=== PATIENT | female | born 1945 | race Caucasian/White ===

== ENCOUNTER 2022-12-26 14:33 | Emergency (ER) | payer OTHER, MEDICARE ==
--- NOTE | 2022-12-26 14:44 | ERPHSYRPT ---
- History of Present Illness Time Seen by Provider: 12/26/22 14:38 Source: patient, EMS, shelter records Exam Limitations: no limitations Physician History: This is a 77-year-old white female patient who presents to the emergency department via ambulance service from a shelter secondary to increased weakness left side and fall. She also complained of a headache. 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 She was undergo ing physical therapy today around 7:30 in the morning and it was noticed that she was dragging her left lower extremity more. Apparently she has fallen recently. She also complained of eye pain. Her symptoms were initially present at 730 this morning and appeared to be worsening per physical therapy/shelter and therefore she was sent to the emergency department for evaluation. Patient denies chest pain. She currently denies headache and she denies eye pain. She has no abdominal pain. She has had no nausea vomiting or diarrhea symptoms. Occurred: this morning Reason for Fall: unknown Injuries/Pain Location: face (Left lateral supraorbital region) Loss of Consciousness: no loss of consciousness Severity of Pain-Max: mild (To moderate) Severity of Pain-Current: mild Associated Symptoms (Fall): denies symptoms, trouble walking (Left-sided weakness ever since her stroke in 2021) Allergies/Adverse Reactions: No Known Drug Allergies Allergy (Unverified 12/26/22 14:38) Travel Risk - International Travel Have you traveled outside of the country in past 3 weeks: No - Coronavirus Screening Are you exhibiting any of the following symptoms?: No Close contact with a COVID-19 positive Pt in past 14-21 Days: No - Review of Systems Constitutional: No Symptoms Eyes: No Symptoms Ears, Nose, & Throat: No Symptoms Respiratory: No Symptoms Cardiac: Orthopnea Abdominal/Gastrointestinal: No Symptoms Genitourinary Symptoms: No Symptoms Musculoskeletal: No Symptoms Skin: No Symptoms Neurological: No Symptoms Psychological: No Symptoms Endocrine: No Symptoms Hematologic/Lymphatic: No Symptoms Immunological/Allergic: No Symptoms All Other Systems: Reviewed and Negative - Past Medical History Pertinent Past Medical History: Yes - Past Surgical History Past Surgical History: Yes - Nursing Vital Signs Nursing Vital Signs: Initial Vital Signs Temperature 98.3 F 12/26/22 14:39 Pulse Rate 76 12/26/22 14:39 Respiratory Rate 18 12/26/22 14:39 Blood Pressure 119/74 12/26/22 14:39 O2 Sat by Pulse Oximetry 98 12/26/22 14:39 Pain Scale Pain Intensity 0 - Fil[place] Coma Score Best Eye Response ([place]): (4) open spontaneously Best Verbal Response ([place]): (5) oriented Best Motor Response ([place]): (6) obeys commands Filion Total: 15 - Physical Exam General Appearance: no apparent distress, alert, anxiety Head Injury: no evidence of injury (Left supraorbital/temporal region mild ecchymosis) Eye Exam: PERRL/EOMI, eyes nml inspection ENT Exam: airway nml, nml ext.inspection, No evidence of ENT injury Neck Exam: supple, trachea midline, full range of motion, normal alignment, normal inspection Respiratory/Chest Exam: normal breath sounds, No chest tenderness, No respiratory distress, No ecchymosis, No crepitus Cardiovascular Exam: normal heart sounds, regular rate/rhythm Gastrointestinal Exam: soft, normal bowel sounds, No tenderness Rectal Exam: not done Back Exam: normal inspection, normal range of motion, CVA tenderness Neurologic Exam: alert, oriented x 3, cooperative, air crew officer II-XII nml as tested, normal mood/affect, sensation nml Skin Exam: normal color, warm, dry SpO2 Interpretation: normal O2 Delivery: Room Air - Course Nursing assessment & vital signs reviewed: Yes Ordered Tests: Active Orders 24 hr Category Date Time Status Supervisor Chemical STAT Care 12/26/22 14:59 Active EKG-ER Only STAT Care 12/26/22 14:58 Active IV Insertion STAT Care 12/26/22 14:58 Active NPO (ED) STAT Care 12/26/22 14:58 Active Pulse Oximetry (ED) STAT Care 12/26/22 14:58 Active HEAD WITHOUT CONTRAST [CT] Stat Exams 12/26/22 14:59 Completed CBC W DIFF Stat Lab 12/26/22 15:06 Completed CMP Stat Lab 12/26/22 15:06 Completed CULTURE,URINE Stat Lab 12/26/22 16:06 Received UA W/RFX UR CULTURE Stat Lab 12/26/22 16:06 Completed Lab/Rad Data: Laboratory Result Diagrams 12/26/22 15:06 12/26/22 15:06 Laboratory Results 12/26/22 12/26/22 12/26/22 Range/Units 16:06 15:06 15:06 WBC 12.2 H (4.0-10.5) x10^3/uL RBC 3.98 L (4.1-5.4) x10^6/uL Hgb 12.4 (12.0-16.0) g/dL Hct 37.1 (35-47) % MCV 93.2 (78-100) fL MCH 31.2 (26-32) pg MCHC 33.4 (32-36) g/dL RDW 12.7 (11.5-14.0) % Plt Count 287 (150-450) x10^3/uL MPV 11.1 H (7.5-11.0) fL Gran % 64.8 (36.0-66.0) % Immature Gran % (Auto) 0.6 H (0.00-0.4) % Nucleat RBC Rel Count 0.0 (0.00-0.1) % Eos # (Auto) 0.06 (0-0.5) x10^3/uL Immature Gran # (Auto) 0.07 H (0.00-0.03) x10^3u/L Absolute Lymphs (auto) 2.84 (1.0-4.6) x10^3/uL Absolute Monos (auto) 1.30 (0.0-1.3) x10^3/uL Absolute Nucleated RBC 0.00 (0.00-0.01) x10^3u/L Lymphocytes % 23.2 L (24.0-44.0) % Monocytes % 10.6 (0.0-12.0) % Eosinophils % 0.5 (0.00-5.0) % Basophils % 0.3 (0.0-0.4) % Absolute Granulocytes 7.93 H (1.4-6.9) x10^3/uL Basophils # 0.04 (0-0.4) x10^3/uL Sodium 133 L (137-145) mmol/L Potassium 3.6 (3.5-5.1) mmol/L Chloride 95 L (98-107) mmol/L Carbon Dioxide 30 (22-30) mmol/L Anion Gap 12.0 (5-15) MEQ/L BUN 8 (7-17) mg/dL Creatinine 0.60 (0.52-1.04) mg/dL Estimated GFR > 60.0 ML/MIN Glucose 102 (74-106) mg/dL Calcium 8.5 (8.4-10.2) mg/dL Total Bilirubin 0.80 (0.2-1.3) mg/dL AST 30 (14-36) U/L ALT 18 (0-35) U/L Alkaline Phosphatase 107 (38-126) U/L Serum Total Protein 7.3 (6.3-8.2) g/dL Albumin 3.4 L (3.5-5.0) g/dL Urine Color Yellow (Yellow) Urine Appearance Clear (Clear) Urine pH 6.0 (4.6-8.0) Ur Specific [place] 1.010 (1.005-1.030) Urine Protein Negative (Negative) Urine Glucose (UA) Negative (Negative) mg/dL Urine Ketones Negative (Negative) Urine Blood Negative (Negative) Urine Nitrite Negative (Negative) Urine Bilirubin Negative (Negative) Urine Urobilinogen 1.0 A (0.2) mg/dL Ur Leukocyte Esterase Moderate A (Negative) U Hyaline Cast (Auto) NONE SEEN (0-2) /LPF Urine Microscopic RBC 0-2 (0-5) /HPF Urine Microscopic WBC 21-50 A (0-5) /HPF Ur Epithelial Cells None Seen (None Seen) /HPF Urine Bacteria None Seen (None Seen) /HPF Urine Culture Reflexed YES (NO) - Progress Progress: improved, re-examined Progress Note: 12/26/22 17:14 CT scan of the head without contrast was interpreted by the radiologist. 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 There is also incidental paranasal sinus disease. 12/26/22 17:14 This patient's medical issue is 1 of moderate complexity. The level of complexity and the work-up performed was based on review of the patient's past medical history, medication list, drug allergy list, history of present illness and physical findings on examination. The work-up performed was a CT scan of the head, IV line placement, urinalysis, CBC, CMP, twelve-lead EKG. The results of the entire work-up that was performed was reviewed by me. The patient has a urinary tract infection. No other significant findings are noted. This could account for the patient's weakness and slight increasing confusion if present. We will provide her with 1 g of Rocephin intravenously and sent a prescription to her pharmacy of cefdinir 300 mg orally twice a day for 7 days. Counseled pt/family regarding: lab results, diagnosis, need for follow-up, rad results Medical Desision Making - Independent Historian Additional History obtained from: Water Resource Manager/EMT - External Record(s) Reviewed Records reviewed as a part of evaluation & management: senior care - Discussion of managment Reviewed:: Test results Agreed on:: Treatment plan, need for follow-up - Social Determinants of Health Limited access to: transportation - Diagnostic Testing Diagnostic test were ordered, analyzed, and reviewed by me: Yes Radiological Interpretation: Reviewed by me, Teleradiologist Report - Risk of complications The pt has a mod risk of morbidity or mortality based on: Need for prescription drug management - Departure Departure Disposition: Home Clinical Impression: Weakness, UTI (urinary tract infection) Condition: Stable Critical Care Time: No Referrals: JUSTIN DIOP MD [Primary Care Provider] - Follow up/PCP as directed Additional Instructions: Drink plenty of fluids. Take your antibiotics as prescribed. Continue your other medication as prescribed. Follow-up with your primary care physician for further evaluation management. Prescriptions: Cefdinir 300 mg PO BID #14 cap
[2022-12-26 14:57] VITALS: PULSE 76
[2022-12-26 15:08] LABS: Absolute Neutrophil Ct (ANC) 7.93 x10^3/uL (1.4-6.9); BASOPHIL % 0.3 % (0.0-0.4); Basophil (Absolute #) 0.04 x10^3/uL (0-0.4); Eosinophil % 0.5 % (0.00-5.0); Eosinophil (Absolute #) 0.06 x10^3/uL (0-0.5); Hematocrit 37.1 % (35-47); Hemoglobin 12.4 g/dL (12.0-16.0); IMMATURE GRAN # 0.07 x10^3u/L (0.00-0.03); IMMATURE GRAN % 0.6 % (0.00-0.4); Lymphocyte (Absolute #) 2.84 x10^3/uL (1.0-4.6); Lymphocytes % 23.2 % (24.0-44.0); Mean Cell Volume 93.2 fL (78-100); Mean Corpuscular Hemoglobin 31.2 pg (26-32); Mean Corpuscular Hgb Concent. 33.4 g/dL (32-36); Mean Platelet Volume 11.1 fL (7.5-11.0); Monocytes % 10.6 % (0.0-12.0); Neutrophil % 64.8 % (36.0-66.0); Platelet Count 287 x10^3/uL (150-450); Red Blood Count 3.98 x10^6/uL (4.1-5.4); Red Cell Distribution Width 12.7 % (11.5-14.0); White Blood Count 12.2 x10^3/uL (4.0-10.5)
[2022-12-26 15:22] LABS: ALBUMIN 3.4 g/dL (3.5-5.0); ALKALINE PHOSPHATASE 107 U/L (38-126); BLOOD UREA NITROGEN 8 mg/dL (7-17); CHLORIDE 95 mmol/L (98-107); Calcium 8.5 mg/dL (8.4-10.2); Carbon Dioxide 30 mmol/L (22-30); EST GLOMERULAR FILTRATION RATE > 60.0 ML/MIN; Glucose 102 mg/dL (74-106); Potassium 3.6 mmol/L (3.5-5.1); SGOT/AST 30 U/L (14-36); SGPT/ALT 18 U/L (0-35); SODIUM 133 mmol/L (137-145); Total Protein 7.3 g/dL (6.3-8.2)
--- NOTE | 2022-12-26 15:25 | XRAY ---
Indication: Left-sided weakness. CVA. Multiple contiguous axial images obtained through the head without contrast. Comparison: None Age-appropriate global atrophy, minimal periventricular degenerative micro-ischemia bilaterally, and 3.1 x 0.8 cm focus old infarct right basal ganglia. No acute intracranial hemorrhage, abnormal extra-axial fluid collection, or mass effect. Fourth ventricle is midline without hydrocephalus. Bony calvarium intact. Near complete opacification right maxillary sinus with fluid leveling and minimal mucosal thickening inferior left maxillary sinus. Mastoid air cells are clear. 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 Incidental paranasal sinus disease.
[2022-12-26 16:16] LABS: Appearance Clear (Clear); Bacteria None Seen /HPF (None Seen); Bilirubin Negative (Negative); Blood Negative (Negative); Epithelial Cells None Seen /HPF (None Seen); Glucose, Urine Negative (Negative); Hyaline Casts NONE SEEN /LPF (0-2); Ketones Negative (Negative); Leukocyte Esterase Moderate (Negative); Nitrite Negative (Negative); Protein,Urine Dip Negative (Negative); RBC 0-2 /HPF (0-5); WBC 21-50 /HPF (0-5)
[2022-12-26 16:31] VITALS: BP 128/70; O2SAT 98
[2022-12-26 16:33] LABS: ADD URINE CULTURE? YES (NO)
[2022-12-26] MEDS ORDERED: ROCEPHIN 1 Gm-D5w 50 ml Bag** 1 G/50 ML IVPB IV STA (17:13)
[2022-12-26] MEDS ORDERED: ROCEPHIN 1 Gm-D5w 50 ml Bag** 1 G/50 ML IVPB IV ONE (17:18)
== END 2022-12-26 18:20 | disposition home or self-care (01) ==
LOC: ED 14:33
DX: N39.0 Urinary tract infection, site not specified (principal); I69.354 Hemiplegia and hemiparesis following cerebral infarction affecting left non-dominant side; R51.9 Headache, unspecified
CPT/HCPCS: 36000; 36415; 70450; 80053; 81001; 85025; 87086; 93005; 93041; 94760; 96365; 99284; J0696

== ENCOUNTER 2025-01-04 15:36 | Emergency (ER) | payer MEDICARE ==
[2025-01-04 15:57] VITALS: TEMP 97.5
--- NOTE | 2025-01-04 16:03 | ERPHSYRPT ---
- History of Present Illness Source: patient Exam Limitations: no limitations Hx Influenza Vaccination/Date Given: Yes Hx Pneumococcal Vaccination/Date Given: No <MADELINE MUÑOZ - Last Filed: 01/04/25 18:48> - History of Present Illness Method of Injury: fall Occurred: just prior to arrival Where Injury Occurred: [facility] Loss of Consciousness: no loss of consciousness Pain Location: pelvis, hip(s) Severity of Pain-Max: moderate Severity of Pain-Current: moderate Modifying Factors: Improves With: immobilization, movement Associated Symptoms: denies symptoms <RYNE HURST - Last Filed: 01/04/25 22:08> - History of Present Illness Time Seen by Provider: 01/04/25 16:00 Physician History: Patient was sitting up in bed and was twisting to get out and lost her balance and fell. She fell towards her left side. She landed on her left hip. She now has left hip pain. Her leg is externally rotated and a little bit shortened whenever I walk in the room. She is brought in by EMS. She does not have any other trauma. She did not hit her head or lose consciousness or anything like that. She did not have a syncopal episode had no palpitations or dyspnea or chest pain. Her hip is the only area that hurts. Walking and palpation and range of motion makes it worse resting and finding a position of comfort makes it better (MADELINE MUÑOZ) Allergies/Adverse Reactions: No Known Drug Allergies Allergy (Verified 01/04/25 15:43) Home Medications: Clopidogrel Bisulfate [Plavix] 1 tab PO DAILY 01/04/25 [History] Sertraline HCl 50 mg [Zoloft 50 mg Tablet] 1 tab PO DAILY 01/04/25 [History] Sertraline HCl [Zoloft] 1 tab PO DAILY 01/04/25 [History] - Review of Systems Constitutional: No Symptoms Eyes: No Symptoms Musculoskeletal: Joint Pain Neurological: No Symptoms Psychological: No Symptoms All Other Systems: Reviewed and Negative <MADELINE MUÑOZ - Last Filed: 01/04/25 18:48> - Review of Systems Constitutional: No Fever, No Chills Eyes: No Symptoms Ears, Nose, & Throat: No Symptoms Respiratory: No Cough, No Dyspnea Cardiac: No Chest Pain, No Edema, No Syncope Abdominal/Gastrointestinal: No Abdominal Pain, No Nausea, No Vomiting, No Diarrhea Genitourinary Symptoms: No Dysuria Musculoskeletal: Fall, Injury, Joint Pain, No Back Pain, No Neck Pain Skin: No Rash Neurological: Other (left sided residual weakness aafter CVA), No Dizziness, No Focal Weakness, No Sensory Changes Psychological: No Symptoms Endocrine: No Symptoms Hematologic/Lymphatic: No Symptoms Immunological/Allergic: No Symptoms All Other Systems: Reviewed and Negative <RYNE HURST - Last Filed: 01/04/25 22:08> - Past Medical History Pertinent Past Medical History: Yes - Past Surgical History Past Surgical History: Yes - Social History Smoking Status: Never smoker Exposure to second hand smoke: No Drug Use: none Patient Lives Alone: No (ECF) <MUÑOZMADELINE ShanitaElke - Last Filed: 01/04/25 18:48> - Past Medical History Pertinent Past Medical History: Yes Neurological History: Stroke - Past Surgical History Past Surgical History: Yes <RYNE HURST - Last Filed: 01/04/25 22:08> Physical Exam - Misty Coma Score Best Eye Response ([place]): (4) open spontaneously Best Verbal Response ([place]): (5) oriented Best Motor Response ([place]): (6) obeys commands Misty Total: 15 - Physical Exam General Appearance: no apparent distress Head Injury: no evidence of injury Eye Exam: bilateral eye: normal inspection, PERRL, EOMI Neck Exam: supple Respiratory/Chest Exam: chest tenderness, normal breath sounds, No respiratory distress Back Exam: normal inspection Extremity Exam: other (Patient's left leg is a little bit shortened and externally rotated. There is tenderness in the hip area. There is no deformities otherwise. Pelvis feels stable. Femur knee leg and ankle and foot are all within normal limits.) Neurologic Exam: alert, oriented x 3, cooperative Skin Exam: normal color, warm, dry <MUÑOZMADELINE S. - Last Filed: 01/04/25 18:48> - Physical Exam ENT Exam: airway nml Neck Exam: trachea midline, full range of motion, normal alignment, normal inspection Cardiovascular Exam: normal heart sounds, regular rate/rhythm Rectal Exam: deferred Back Exam: normal inspection, normal range of motion Peripheral Pulses: carotid (R): 2+, carotid (L): 2+, femoral (R): 2+, femoral (L): 2+, dorsalis-pedis (R): 2+, dorsalis-pedis (L): 2+ Neurologic Exam: other (residual stable left sided weakness. ) SpO2 Interpretation: normal SpO2: 93 O2 Delivery: Nasal Cannula <RYNE HURST - Last Filed: 01/04/25 22:08> - Nursing Vital Signs Nursing Vital Signs: Initial Vital Signs Pulse Rate 78 01/04/25 15:39 Respiratory Rate 26 H 01/04/25 15:39 Blood Pressure 144/70 01/04/25 15:39 O2 Sat by Pulse Oximetry 93 L 01/04/25 15:39 Pain Scale Pain Intensity 6 - Course Nursing assessment & vital signs reviewed: Yes - Radiology Exams Pelvis X-ray Interpretation: Interpreted by me, Other (pelvic rami fracture) - CT Exams Pelvis CT Interpretation: Tele-radiologist Report, Other (pelvic rami fx with molar tooth sign. ) <RYNE HURST - Last Filed: 01/04/25 22:08> Ordered Tests: Active Orders 24 hr Category Date Time Status HIP UNI (2V) INCL PEL IF DONE Stat Exams 01/04/25 15:53 Completed PELVIS WITHOUT CONTRAST [CT] Stat Exams 01/04/25 18:44 Completed CBC W DIFF Stat Lab 01/04/25 16:40 Completed CMP Stat Lab 01/04/25 16:40 Completed Medication Summary Discontinued Medications Generic Name Dose Route Start Last Admin Trade Name Freq PRN Reason Stop Dose Admin Hydromorphone HCl 1 mg 01/04/25 16:40 01/04/25 16:52 Hydromorphone 1 Mg/1ml Inj IV 01/04/25 16:41 1 mg STAT ONE Administration Hydromorphone HCl Confirm 01/04/25 16:50 Hydromorphone 1 Mg/1ml Inj Administered 01/04/25 16:51 Dose 1 mg .ROUTE .STK-MED ONE Hydromorphone HCl 0.5 mg 01/04/25 19:25 01/04/25 19:30 Hydromorphone 1 Mg/1ml Inj IV 01/04/25 19:26 0.5 mg STAT ONE Administration Hydromorphone HCl Confirm 01/04/25 19:28 Hydromorphone 1 Mg/1ml Inj Administered 01/04/25 19:29 Dose 1 mg .ROUTE .STK-MED ONE Hydromorphone HCl 0.5 mg 01/04/25 21:23 Hydromorphone 1 Mg/1ml Inj IV 01/04/25 21:24 STAT ONE Lab/Rad Data: Laboratory Result Diagrams 01/04/25 16:40 01/04/25 16:40 Laboratory Results 01/04/25 01/04/25 Range/Units 16:40 16:40 WBC 14.7 H (3.98-10.04) x10^3/uL RBC 4.42 (3.93-5.22) x10^6/uL Hgb 13.7 (11.2-15.7) g/dL Hct 42.2 (34.1-44.9) % MCV 95.5 H (79.4-94.8) fL MCH 31.0 (25.6-32.2) pg MCHC 32.5 (32.2-35.5) g/dL RDW 13.2 (11.7-14.4) % Plt Count 197 (182-369) x10^3/uL MPV 11.1 (9.4-12.3) fL Gran % 77.3 H (34.0-71.1) % Immature Gran % (Auto) 1.2 H (0.001-0.429) % Nucleat RBC Rel Count 0.0 (0.00-0.2) % Eos # (Auto) 0.05 (0.04-0.36) x10^3/uL Immature Gran # (Auto) 0.17 H (0.001-0.031) x10^3u/L Absolute Lymphs (auto) 2.10 (1.18-3.74) x10^3/uL Absolute Monos (auto) 0.97 H (0.24-0.86) x10^3/uL Absolute Nucleated RBC 0.00 (0.00-0.012) x10^3u/L Lymphocytes % 14.3 L (19.3-51.7) % Monocytes % 6.6 (4.7-12.5) % Eosinophils % 0.3 L (0.7-5.8) % Basophils % 0.3 (0.1-1.2) % Absolute Granulocytes 11.39 H (1.56-6.13) x10^3/uL Basophils # 0.05 (0.01-0.08) x10^3/uL Sodium 140 (135-145) mmol/L Potassium 4.2 (3.5-5.1) mmol/L Chloride 105 (98-107) mmol/L Carbon Dioxide 28 (22-30) mmol/L Anion Gap 11.2 (5-15) MEQ/L BUN 11 (7-17) mg/dL Creatinine 0.71 (0.52-1.04) mg/dL Estimated GFR 85.4 ML/MIN Glucose 99 (74-106) mg/dL Calcium 8.7 (8.4-10.2) mg/dL Total Bilirubin 0.60 (0.2-1.3) mg/dL AST 35 (14-36) U/L ALT 19 (0-35) U/L Alkaline Phosphatase 79 (38-126) U/L Serum Total Protein 6.7 (6.3-8.2) g/dL Albumin 3.9 (3.5-5.0) g/dL - Progress Progress: unchanged <MADELINE MUÑOZ - Last Filed: 01/04/25 18:48> - Progress Progress: improved, pain not gone completely, re-examined Discussed with Dr.: Other (Dr. Mascorro at ( hospitalist)) Will see patient in: hospital (full admit) Counseled pt/family regarding: lab results, diagnosis, need for follow-up, rad results <RYNE HURST - Last Filed: 01/04/25 22:08> - Progress Progress Note: On the differential was hip fracture pelvis fracture hip strain pelvic contusion X-ray was done that showed a inferior and superior ramus fracture. I ordered a CT per radiology's request. At this time turning the patient over to Dr. Hurst. He will follow-up with discharge 01/04/25 18:45 (MADELINE MUÑOZ) 01/04/25 19:27 tAKEN AT CHANGE OF SHIFT FROM dR. Muñoz AFTER discussion of pending CT for Pubic ramus Fx to r/u hip fx but pt not ambulating at this time and may need admission. Will discuss with Ortho. Pain is 8/10 and pt requests more pain med - risk /benefit discussed and 0.5 ordered. pain decreased to 4/10. 01/04/25 20:[address] and this will take additional time past 4 hours as they are backed up for rad readings but need this for consideration with hospitalis and ortho for admit discussion. 01/04/25 20:09 01/04/25 20:[address] Larkin who will consult in house, but anticipates no surgery and has reviewed the CT. We are requested to consult with hospitalist for obs in house. and pain control. 01/04/25 20:[address] csytourethrogram and we are looking into this but will require more time. 01/04/25 21:16 They do not have the type of contrast on hand for this study tonight here - so we are calling to consult for transfer to for this study tonight and definitive care. This will take additional time. 01/04/25 21:[address] Roger collect on delivery clerk Urologist at [facility] and he is comfortable to consult there as long as his hospital can do the test there. So we are consulting the ER.at . 01/04/25 22:[address] Mascorro at [facility] hospitalist and she accepted pt in transfer , will perform the study and have Dr. Roger follow the pt and intervene if a urologic injury is found. (RYNE HURST) Medical Desision Making - Independent Historian Additional History obtained from: Senior Care nurse - External Record(s) Reviewed Records reviewed as a part of evaluation & management: jail - Discussion of managment Care discussed with:: specialist Reviewed:: Test results, Need for additional workup Agreed on:: Treatment plan, need for follow-up - Diagnostic Testing Diagnostic test were ordered, analyzed, and reviewed by me: Yes Radiological Interpretation: Discussed w/ radiologist, Teleradiologist Report - Risk of complications The pt has a mod risk of morbidity or mortality based on: Need for prescription drug management The pt has a high risk of morbidity or mortality based on: Decision regarding hospitilization or escalation of hosp level of care <RYNE HURST - Last Filed: 01/04/25 22:08> - Departure Critical Care Time: No <MADELINE MUÑOZ - Last Filed: 01/04/25 18:48> - Departure Departure Disposition: Transfer Critical Care Time: No <RYNE HURST - Last Filed: 01/04/25 22:08> - Departure Clinical Impression: Closed fracture of left inferior pubic ramus, Fracture of left superior pubic ramus, Fracture of right superior pubic ramus Condition: Stable Referrals: JUSTIN DIOP MD [Primary Care Provider, [facility]] - Follow up/PCP as directed
[2025-01-04 16:44] LABS: Absolute Neutrophil Ct (ANC) 11.39 x10^3/uL (1.56-6.13); BASOPHIL % 0.3 % (0.1-1.2); Basophil (Absolute #) 0.05 x10^3/uL (0.01-0.08); Eosinophil % 0.3 % (0.7-5.8); Eosinophil (Absolute #) 0.05 x10^3/uL (0.04-0.36); Hematocrit 42.2 % (34.1-44.9); Hemoglobin 13.7 g/dL (11.2-15.7); IMMATURE GRAN # 0.17 x10^3u/L (0.001-0.031); IMMATURE GRAN % 1.2 % (0.001-0.429); Lymphocytes % 14.3 % (19.3-51.7); Mean Cell Volume 95.5 fL (79.4-94.8); Mean Corpuscular Hgb Concent. 32.5 g/dL (32.2-35.5); Mean Platelet Volume 11.1 fL (9.4-12.3); Monocyte (Absolute #) 0.97 x10^3/uL (0.24-0.86); Monocytes % 6.6 % (4.7-12.5); Neutrophil % 77.3 % (34.0-71.1); Platelet Count 197 x10^3/uL (182-369); Red Blood Count 4.42 x10^6/uL (3.93-5.22); Red Cell Distribution Width 13.2 % (11.7-14.4); White Blood Count 14.7 x10^3/uL (3.98-10.04)
[2025-01-04] MEDS ORDERED: Hydromorphone 1 mg/ml Injection ONE ×3 (16:50→23:51)
[2025-01-04] MEDS: Hydromorphone 1 mg/ml Injection IV ONE ×3 (16:52→23:52)
[2025-01-04 16:57] LABS: ALBUMIN 3.9 g/dL (3.5-5.0); ANION GAP 11.2 MEQ/L (5-15); BILIRUBIN,TOTAL 0.6 mg/dL (0.2-1.3); Calcium 8.7 mg/dL (8.4-10.2); Creatinine 1 0.71 mg/dL (0.52-1.04); EST GLOMERULAR FILTRATION RATE 85.4 ML/MIN; Potassium 4.2 mmol/L (3.5-5.1); Total Protein 6.7 g/dL (6.3-8.2)
--- NOTE | 2025-01-04 18:45 | XRAY ---
CLINICAL HISTORY: trauma COMPARISON: None. TECHNIQUE: Radiograph of the left hip and pelvis were obtained in AP projection with the left hip in lateral projection. FINDINGS: Displaced fracture of the left superior and inferior pubic ramus Bone density is reduced No lytic or sclerotic lesion is identified. ostitis pubis Bilateral mild degenerative changes of both sacro-illiac and hip joints Surrounding soft tissues and fat planes are intact. small calcified lesion projected on the renal pelvis, likely a small calcified fibroid IMPRESSION: 1. Displaced fracture of the left superior and inferior pubic ramus. 2. Diffuse osteopenia. 3. Mild degenerative osseous changes. 4. Suggest a CT scan. Electronically Signed by: Anusha Alex MD. (01/04/2025 18:40:55 EDT)
--- NOTE | 2025-01-04 20:54 | XRAY ---
CLINICAL HISTORY: trauma COMPARISON: reviewing X-ray done on the same day. TECHNIQUE: CT scan of the pelvis was performed without the administration of intravenous contrast. Contiguous axial images were obtained from the iliac crests to the pubic symphysis. Coronal and sagittal reformatted images were also reviewed. One of the following dose reduction techniques was utilized for this exam. Automated exposure control, adjustment of the mA and/or kV according to patient size, and use of iterative reconstruction. DLP: 456.1 mGy-cm, CTDI: 16.1 mGy. FINDINGS: Pelvis bone : Bilateral fracture of both superior pubic rami, being more displaced on the left side with fracture of the left inferior pubic ramus and extension into both pubic bones, associated with soft tissue edema and fluid extending to the retropubic ramus and perivesical, giving the molar tooth sign , suggestive of extrapertoneal bladder injury diffuse osteopenia soft tissue thickening around the urthera Uterus: The uterus is of senile appearance Adnexa: No adnexal masses Rectum and Colon: The rectum and colon are within normal limits without evidence of wall thickening or abnormal enhancement. IMPRESSION: 1. Bilateral fracture of both superior pubic rami, being more displaced on the left side, with fracture of the left inferior pubic ramus and extension into both pubic bones, associated with soft tissue edema and fluid extending to the retropubic ramus and perivesical, giving the molar tooth sign, suggestive of extrapertoneal bladder injury 2. CT cystourethrogram is recommended if clinically warranted to exclude bladder/urethral injury. Received a call from at 07:43 PM DRY FINISHER, 01/04/2025, and Aretha Edmonds, the nurse, was informed regarding the presence of critical medical findings. Electronically Signed by: Anusha Alex MD. (01/04/2025 20:50:19 EDT)
[2025-01-05 01:11] VITALS: O2SAT 97
[2025-01-05 01:58] VITALS: BP 115/89; PULSE 76; RESP 16
[2025-01-05] MEDS ORDERED: Hydromorphone 1 mg/ml Injection ONE (02:05)
[2025-01-05] MEDS: Hydromorphone 1 mg/ml Injection IV ONE (02:06)
== END 2025-01-05 02:15 | disposition short-term general hospital (02) ==
LOC: ED 15:36
DX: S32.512A Fracture of superior rim of left pubis, initial encounter for closed fracture (principal); S32.511A Fracture of superior rim of right pubis, initial encounter for closed fracture; S32.592A Other specified fracture of left pubis, initial encounter for closed fracture; W06.XXXA Fall from bed, initial encounter; Y92.122 Bedroom in nursing home as the place of occurrence of the external cause; Z79.02 Long term (current) use of antithrombotics/antiplatelets; Z79.899 Other long term (current) drug therapy
CPT/HCPCS: 36415; 72192; 73502; 80053; 85025; 96374; 96376; 99285; J1171